=== PATIENT | female | born 1985 | race Caucasian/White ===

== ENCOUNTER 2019-09-06 15:44 | Emergency (ER) | payer OTHER ==
[~2019-09-06] VITALS: Ht 154.9 cm; Wt 108.0 kg
[2019-09-06 15:50] VITALS: BP 136/90
--- NOTE | 2019-09-06 15:58 | NUR ---
PT GIVING URINE SAMPLE
--- NOTE | 2019-09-06 16:01 | NUR ---
PT TO ER LOBBY, PT ALERT AND AWAKE
--- NOTE | 2019-09-06 16:14 | NUR ---
PT HAVING BLOOD DRAWN IN CHAIR
[2019-09-06 16:37] LABS: BASOPHILS % (AUTO) 0.3 % (0.0-2.0); EOSINOPHILS # (AUTO) 0.1 K/uL (0-0.4); EOSINOPHILS % (AUTO) 0.9 % (0.0-4.0); HEMATOCRIT 30.8 % (36-48); HEMOGLOBIN 10.4 g/dL (12.0-16.0); LYMPHOCYTES % (AUTO) 25.7 % (20.5-51.1); MEAN CORPUSCULAR HEMOGLOBIN 29 pg (27-31); MEAN CORPUSCULAR HGB CONC 34 g/dL (33-37); MEAN CORPUSCULAR VOLUME 84.9 fL (80-94); MONOCYTES # (AUTO) 0.6 K/uL (0.8-1.0); MONOCYTES % (AUTO) 7.5 % (1.7-9.3); NEUTROPHILS % (AUTO) 65.6 % (42.2-75.2); PLATELET COUNT (AUTO) 278 K/uL (140-450); RED BLOOD CELL COUNT(AUTO) 3.63 MIL/uL (4.20-5.40); RED CELL DISTRIBUTION WIDTH 13.9 % (11.6-13.7); WHITE BLOOD COUNT (AUTO) 7.6 K/uL (4.8-10.8)
--- NOTE | 2019-09-06 16:41 | NUR ---
PT AMBULATORY TO BED 11
[2019-09-06 16:54] LABS: APPEARANCE,URINE HAZY (CLEAR); BILIRUBIN,URINE NEGATIVE (NEGATIVE); BLOOD, URINE TRACE (NEGATIVE); COLOR,URINE STRAW (YELLOW); LEUKOCYTE ESTERASE ,URINE 1+ (NEGATIVE); NITRITE, URINE NEGATIVE (NEGATIVE); UGLUCOSE NEGATIVE (NEGATIVE)
[2019-09-06 16:55] LABS: RBC,URINE 0-5 /HPF (0-5)
[2019-09-06] MEDS ORDERED: CEPHALEXIN 500 MG CAP PO ONE (18:45)
--- NOTE | 2019-09-06 19:19 | NUR ---
REPORT GIVEN TO ROSANNA
[2019-09-06] MEDS ORDERED: ACETAMINOPHEN EXTRA STRENGTH 500 MG TAB PO ONE (19:30)
[2019-09-06] MEDS ORDERED: AZITHROMYCIN 250 MG TAB PO ONE (19:40)
[2019-09-06] MEDS ORDERED: cefTRIAXone 250 MG in LIDOCAINE MPF 1% 0.9 ML IM ONE (19:40)
[2019-09-06 20:20] VITALS: BP 141/88
--- NOTE | 2019-09-06 20:20 | NUR ---
PT DISCHARGED WITH PAPERWORK. RX ACETAMINOPHEN, AUGMENTIN. EDUCATED PT REGARDING MEDICATIONS AND S/E. EDUCATED PT REGARDING D/C DIAGNOSIS AND INSTRUCTIONS. PT VERBALIZED UNDERSTANDING OF TEACHING. TOLD PT TO FOLLOW UP WITH PCP AND WHEN TO RETURN TO ED. PT VSS. ALL QUESTIONS ANSWERED.
== END 2019-09-06 20:20 | disposition home or self-care (01) ==
LOC: MED 15:44
DX: O23.42 Unspecified infection of urinary tract in pregnancy, second trimester (principal); O26.892 Other specified pregnancy related conditions, second trimester; R19.7 Diarrhea, unspecified; Z3A.14 14 weeks gestation of pregnancy
CPT/HCPCS: 36415; 76805; 81001; 81025; 84702; 85025; 86900; 86901; 87070; 87086; 87205; 87210; 96372; 99284; J0696; J2001; Q0092; 87075